=== PATIENT | female | born 1960 | race Caucasian/White ===

== ENCOUNTER 2017-11-22 10:26 | Inpatient (IN) | payer OTHER ==
[~2017-11-22] VITALS: Ht 170.2 cm; Wt 67.3 kg
--- NOTE | ~2017-11-22 | HC ---
[facility] [place] [address] CONSULTATION Name: PATSY VIGIL Room #: 456-P [facility] IN M.R.#: [id number] Admission: 11/22/17 Attend Phys: Leonidas Garcia MD Discharge: Date of : 62 Report #: [id number] THIS REPORT FOR: //name// CC: Leonidas Garcia Sita Olguin DATE OF SERVICE: 11/22/2017 HISTORY OF PRESENT ILLNESS: This is a 57-year-old female patient who was evaluated by me for altered mental status. This patient does not provide any history. No family member is here. The history is all from the records. Apparently, this patient has a Wernicke's encephalopathy and she is in Alzheimer unit. Apparently, this patient was irritable and combative. There was some question of left-sided drooling. The patient is responsive, but I do not know what the baseline is. That is all the history I can get. REVIEW OF SYSTEMS: I carried out 14-point review of system from the record, it looks like this patient has encephalopathy and she was irritable. No further history about her encephalopathy is available. It is not clear that the patient never had a seizure in the past. As mentioned above, 14-point review of system was carried out and that is all I can get. PAST MEDICAL HISTORY: Positive for Wernicke's encephalopathy. FAMILY HISTORY: Negative for early age dementia. SOCIAL HISTORY: Looks like she lives in a group home. PHYSICAL EXAMINATION: Indicate she is alert. She is responsive. She does not know what month it is. She talks very little. She is picking on the things and memory and fund of knowledge is diminished. Cranial nerve examination 2-12 was attempted. She did not cooperate, but I do not see much focality. She moves both sides. There is no meningeal sign. She did not cooperate with the fundus examination. She does not understand the instructions for cerebellar sign. Her pulses are palpable. She has no edema, cyanosis or jaundice. Cardiac examinations appear unremarkable. There is no respiratory difficulty or rhonchi. Blood pressure is 114/78, respirations 20, pulse is 83, temperature is 97.7. LABORATORY DATA: White count is 9.9. Her sodium is 141. She did have a CT scan of the head, which appear unremarkable. Does have chronic changes. IMPRESSION: Difficult to tell what happened to the patient. We need to work her up for any signs of encephalopathy, transient ischemic attack or seizure. I will work her up for that and that workup is ordered. I will suggest a psychiatric consult because the symptoms may be psychiatric superimposed on her [address] [place] [address] CONSULTATION Name: PATSY VIGIL Room #: 456-P [facility] IN M.R.#: [id number] Admission: 11/22/17 Attend Phys: Leonidas Garcia MD Discharge: Date of : 62 Report #: [id number] basic neurological problem. RECOMMENDATIONS: 1. EEG. 2. TSH. 3. Vitamin B12. 4. Carotid Doppler. 5. I do not believe she would be able to do the MRI. 6. We will look at this workup when available and see if anything needs to be done differently. She has advanced cognitive impairment and if it is because of Wernicke's encephalopathy, it is untreatable. Thank you very much for this referral and if you have any questions, please feel free to contact me. By: [id number] Freedom Schulz MD /nt
--- NOTE | ~2017-11-22 | EKG ---
[address] [address] ELECTROCARDIOGRAM REPORT Name: PATSY VIGIL Room #: 456-P ADM IN M.R.#: [id number] Admission: 11/22/17 Attend Phys: Leonidas Garcia MD Discharge: Date of : 62 Report #: [id number] THIS REPORT FOR: //name// [facility] ED Test Date: 2017-11-22 Test Time: 10:53:39 Pat Name: PATSY VIGIL Department: Room: Gender: F [employer]: KF : 1960 Requested By: Jorge Luis Ghosh Order Number: [id number] MD: Eipfanio Cabrera Measurements Intervals [place] Rate: 85 P: 0 AR: 229 QRS: -20 QRSD: 80 T: 23 QT: 379 QTc: 451 Interpretive Statements Sinus rhythm Prolonged AR interval Probable left atrial enlargement Probable left ventricular hypertrophy Artifact in lead(s) I,II,aVR,aVL,aVF No previous ECG available for comparison Electronically Signed On 11-22-2017 15:58:00 CDT by Epifanio Cabrera [email or web address] <ELECTRONICALLY SIGNED> By: Epifanio Cabrera MD 11/22/17 1558 1053 1053 Epifanio Cabrera MD /EPI
--- NOTE | ~2017-11-22 | EEG ---
[facility] [place] [address] ELECTROENCEPHALOGRAM Name: PATSY VIGIL Room #: 456-P ADM IN M.R.#: [id number] Admission: 11/22/17 Attend Phys: Leonidas Garcia MD Discharge: Date of : 62 Report #: [id number] THIS REPORT FOR: //name// CC: Leonidas Garcia Sita Sharif DATE OF SERVICE: 11/22/2017 This patient is being evaluated for altered mental status. EEG was done by placing the electrode by standard 10-20 system of electrode placement. Both referential and sequential montages were used for recording. Background activity in this patient's EEG is about 10 Hz and 30 microvolt. It is a symmetrical activity. The patient became drowsy that is associated with bilateral slowing and vertex sharp waves. Photic stimulation is unremarkable. Throughout the record, no active epileptiform activity was noticed. IMPRESSION: This patient's EEG is intermixed with some theta range slowing on both sides. That is a nonspecific abnormality, which can occur with dementia, encephalopathy, effect of psychotropic medication, etc. No active epileptiform activity was noticed during this record. Thank you very much for this referral. By: [id number] Freedom Schulz MD /nt
[2017-11-22 10:27] VITALS: BP 116/80
[2017-11-22 10:58] LABS: POC CA IONIZED 5.1 mg/dL (4.5-5.3); POC CREATININE 0.5 mg/dL (0.6-1.3); POC HEMOGLOBIN 11.9 g/dL (12.0-15.0); POC POTASSIUM 3.5 mmol/L (3.5-5.1)
[2017-11-22 11:04] LABS: ABSOLUTE NEUTROPHILS 6.4 thou/uL (1.4-8.2); BASOPHILS 0.3 % (0.0-2.0); EOSINOPHILS 0.1 % (0.0-3.0); HEMATOCRIT 37.1 % (37.0-47.0); LYMPHOCYTES 27.5 % (24.0-44.0); MCHC 34.9 g/dL (28.0-37.0); MCV 80.2 fL (80.0-100.0); MONOCYTES 7.3 % (1.0-8.0); PLATELET COUNT 317 thou/uL (150-400); POLYS 64.8 % (36.0-66.0); RBC 4.62 mil/uL (4.20-5.00); RDW 14.8 % (10.5-14.5); WBC 9.9 thou/uL (4.0-11.0)
[2017-11-22 11:11] LABS: ANION GAP 12 mmol/L (7-16); BUN 18 mg/dL (7-18); CALCIUM 10.8 mg/dL (8.5-10.1); CHLORIDE 104 mmol/L (98-107); CO2 21 mmol/L (21-32); CREATININE 0.6 mg/dL (0.6-1.0); GLUCOSE 89 mg/dL (74-106); POTASSIUM 3.4 mmol/L (3.5-5.1); SODIUM 137 mmol/L (136-145)
[2017-11-22 11:19] LABS: TROPONIN-I < 0.04 ng/mL (<0.06)
[2017-11-22 12:17] LABS: URINE BILIRUBIN NEGATIVE (Negative); URINE BLOOD NEGATIVE (Negative); URINE CLARITY CLEAR; URINE COLOR YELLOW; URINE GLUCOSE-RANDOM* NEGATIVE (Negative); URINE KETONES NEGATIVE (Negative); URINE LEUKOCYTES-REFLEX NEGATIVE (Negative); URINE NITRITE-REFLEX NEGATIVE (Negative); URINE PROTEIN (DIPSTICK) NEGATIVE (Negative)
[2017-11-22 12:25] LABS: SSA (PROTEIN CONFIRMATORY) NEGATIVE (Negative)
[2017-11-22 14:29] LABS: AMP/METHAMP Negative (Negative); BARBITURATES Negative (Negative); BENZODIAZEPINES Negative (Negative); COCAINE Negative (Negative); METHADONE Negative (Negative); OPIATES Negative (Negative); PCP Negative (Negative)
[2017-11-22 15:00] VITALS: BP 114/78
[2017-11-22 17:25] VITALS: BP 125/87
[2017-11-22 19:13] VITALS: BP 120/79
[2017-11-22] MEDS ORDERED: FOLIC ACID1 MG PO (21:40)
[2017-11-22] MEDS ORDERED: MULTI VITAMIN1 EACH PO (21:41)
[2017-11-22] MEDS ORDERED: KEPPRA750 MG PO (21:42)
[2017-11-22] MEDS ORDERED: VITAMIN B-1100 M1 (21:45)
[2017-11-22] MEDS ORDERED: MELATONIN3 MG PO (21:47)
[2017-11-22] MEDS ORDERED: TYLENOL325 MG PO (21:48)
[2017-11-22] MEDS ORDERED: MAGOX 400400 MG PO (21:51)
[2017-11-23] VITALS: BP 114/76
[2017-11-23 02:10] LABS: GLYCOHEMOGLOBIN (HGB A1C) 5.3 % (4.8-5.6)
[2017-11-23 04:00] VITALS: BP 101/70
[2017-11-23 05:59] LABS: ABSOLUTE NEUTROPHILS 4.4 thou/uL (1.4-8.2); BASOPHILS 0.4 % (0.0-2.0); EOSINOPHILS 0.5 % (0.0-3.0); HEMATOCRIT 34.8 % (37.0-47.0); HEMOGLOBIN 12.2 gm/dL (12.0-15.0); LYMPHOCYTES 29.4 % (24.0-44.0); MCH 27.8 pg (26.0-34.0); MCHC 35.1 g/dL (28.0-37.0); MCV 79.3 fL (80.0-100.0); PLATELET COUNT 315 thou/uL (150-400); POLYS 60.7 % (36.0-66.0); RBC 4.39 mil/uL (4.20-5.00); RDW 14.7 % (10.5-14.5); WBC 7.2 thou/uL (4.0-11.0)
[2017-11-23 06:07] LABS: ANION GAP 10 mmol/L (7-16); BUN 21 mg/dL (7-18); CALCIUM 9.4 mg/dL (8.5-10.1); CHLORIDE 105 mmol/L (98-107); CHOLESTEROL 203 mg/dL (<200); CO2 24 mmol/L (21-32); CREATININE 0.7 mg/dL (0.6-1.0); GLUCOSE 108 mg/dL (74-106); HDL CHOLESTEROL 58 mg/dL (>40); LDL CHOLESTEROL 137 mg/dL (<100); MAGNESIUM 1.6 mg/dL (1.8-2.4); POTASSIUM 4.3 mmol/L (3.5-5.1); SODIUM 139 mmol/L (136-145); TC:HDL 3.5 Ratio (Not establshd); TRIGLYCERIDE 43 mg/dL (<150); VLDL 9 mg/dL (<40)
[2017-11-23 06:08] LABS: SERUM ASSESSMENT Clear
[2017-11-23 07:31] VITALS: BP 101/68
[2017-11-23 15:15] VITALS: BP 106/75
[2017-11-23 20:00] VITALS: BP 126/87
[2017-11-23 23:43] VITALS: BP 97/67
[2017-11-24 03:49] VITALS: BP 101/65
[2017-11-24 08:00] VITALS: BP 99/68
[2017-11-24] MEDS ORDERED: COLACE100 MG PO (11:35)
[2017-11-24] MEDS ORDERED: VITAMIN D2000 UNIT PO (11:36)
[2017-11-24] MEDS ORDERED: B12INJ IM (11:36)
[2017-11-24] MEDS ORDERED: ASPIR 8181 M1 PO (11:38)
== END 2017-11-24 16:00 | DRG 69 ==
LOC: ER 10:26 → EROBS 13:11 → 4W 15:11
PROVIDERS: Nurse Practitioner; Physician Assistant
DX: G45.9 Transient cerebral ischemic attack, unspecified (principal); E51.2 Wernicke's encephalopathy; E87.6 Hypokalemia; E53.8 Deficiency of other specified B group vitamins; G40.909 Epilepsy, unspecified, not intractable, without status epilepticus; Z99.3 Dependence on wheelchair
CPT/HCPCS: 10045